=== PATIENT | female | born 1990 | race African-American/Black ===

== ENCOUNTER 2017-07-31 20:52 | Emergency (ER) | payer MEDICAID ==
[~2017-07-31 20:52] MED LIST: IBUP600 PO; OXYC1SOL5 PO
[2017-07-31 20:54] VITALS: BP 135/92; PULSE 106; RESP 16; TEMP 99; O2SAT 96
[2017-07-31] MEDS ORDERED: oxyCODONE/ACETAMINOPHEN 5 MG/325 MG TAB PO ONE (22:30)
[2017-07-31] MEDS ORDERED: ACETAMIN 325 MG/BUTALBITAL 50 MG/CAFFEINE 40 MG TAB PO ONE (22:30)
[2017-07-31] MEDS ORDERED: KETOROLAC TROMETHAMINE 60 MG/2 ML (IM) VIAL IM ONE (22:30)
--- NOTE | 2017-07-31 22:32 | PD ---
HPI Chief Complaint: Headache Time Seen by Provider: 22:04 Travel History International Travel<30 days: No Contact w/Intl Traveler<30days: No Traveled to known affect area: No History of Present Illness HPI Patient is a 27-year-old female with no significant past medical history she does have a history of migraines. Today she has a migraine going on for 2 days. It is on the left side of her occiput to the left zoroastrian. She took Aleve 2 she also took Goody powered also. last dose was at 2:00 this afternoon patient ER complains of left-sided headache it is throbbing it is localized from the left zoroastrian to the left occiput nothing is relieving that she has tried ...she has not seen another doctor for this event denies allergies to medications. PFSH Past Medical History Migraines: Yes Influenza Vaccination: No ?: Unknown LMP: 06/19/17 Past Surgical History Section: Yes Social History Alcohol Use: No Tobacco Use: No Substance Use: No Allergies-Medications (Allergen,Severity, Reaction): Coded Allergies: No Known Allergies (Verified Adverse Reaction, Unknown, 07/31/17) Reported Meds & Prescriptions Reported Meds & Active Scripts Active No Active Prescriptions or Reported Medications Review of Systems HENT: Positive: Headaches Neurologic: Positive: Headache, No: Weakness, Dizziness, Syncope, Focal Abnormalities, Coordination Problem, Tremor, Ataxia, Change in Mentation, Slurred Speech, Paresthesia, Incontinence, Seizures, Sensory Disturbance, Other Physical Exam Narrative GENERAL: non toxic appearance and no meningitic sign SKIN: Warm and dry. HEAD: Atraumatic. Normocephalic. rubbing her zoroastrian and occiput scalp I am able to elicit the pain , seems tension type BRITO EYES: Pupils equal and round. No scleral icterus. No injection or drainage. ENT: No nasal bleeding or discharge. Mucous membranes pink and moist. NECK: Trachea midline. No JVD. CARDIOVASCULAR: Regular rate and rhythm. RESPIRATORY: No accessory muscle use. Clear to auscultation. Breath sounds equal bilaterally. GASTROINTESTINAL: Abdomen soft, non-tender, nondistended. Hepatic and splenic margins not palpable. MUSCULOSKELETAL: Extremities without clubbing, cyanosis, or edema. No obvious deformities. NEUROLOGICAL: Awake and alert. No obvious cranial nerve deficits. Motor grossly within normal limits. Five out of 5 muscle strength in the arms and legs. Normal speech. PSYCHIATRIC: Appropriate mood and affect; insight and judgment normal. Data Data Last Documented VS Vital Signs Date Time Temp Pulse Resp B/P (MAP) Pulse Ox O2 Delivery O2 Flow Rate FiO2 07/31/17 23:42 07/31/17 20:54 99.0 106 16 96 Room Air Orders Orders Ketorolac Inj (Toradol Inj) (07/31/17 22:30) Oxycodone-Acetamin 5-325 Mg (Percocet (07/31/17 22:30) [id number]-[id number] 325-50-40 Mg (Fioricet 3 (07/31/17 22:30) Ed Discharge Order (07/31/17 23:44) MDM Medical Decision Making Medical Screen Exam Complete: Yes Emergency Medical Condition: Yes Differential Diagnosis pt has tension type vs sinus vs migraine, she has hx of migraine and therefore I feel CT head not indicated Narrative Course Toradol.IM fioricet and percocet PO with total relief . D/c fome follow up as outpt Diagnosis Primary Impression: Head ache Qualified Codes: R51 - Headache Patient Instructions: Acute Headache (ED), General Instructions Scripts No Active Prescriptions or Reported Meds Disposition: 01 DISCHARGE HOME Condition: Brian Smith MD Jul 31, 2017 22:32
== END 2017-08-01 00:19 | disposition home or self-care (01) ==
LOC: NEPC 20:52
DX: R51 Headache (principal)
CPT/HCPCS: 96372; 99285; J1885